=== PATIENT | male | born 1995 | race Caucasian/White ===

== ENCOUNTER 2017-02-02 11:13 | Emergency (ER) | payer SELFPAY ==
--- NOTE | 2017-02-02 11:40 | Emergency Department Record ---
History of Present Illness - General Chief Complaint: Ankle/Foot Injury Stated Complaint: L ANKLE INJURY Time Seen by Provider: 02/02/17 11:37 Source: Patient Mode of Arrival: Wheelchair Limitations: No limitations - History of Present Illness Initial Comments: 21 yo male presents with an injury to the left ankle. He his ankle twisting it. No other injuries. No numbness or tingling MD Complaint: Ankle injury Onset/Timin -: Hour(s) Injury: Ankle: Left Type of Injury: Other Place: Other Severity scale (1-10): 7 Improves With: Immobilization, Rest Worsens With: Movement, Weight bearing Context: Walking Associated Symptoms: Snap/pop sensation, Swelling, Unable to bear weight - Related Data Previous Rx's Medication Instructions Recorded Hydrocodone/Acetaminophen [[place] 1 each PO Q8H #20 tablet 02/02/17 5-325 Tablet] Allergies Allergy/AdvReac Type Severity Reaction Status Date / Time No Known Drug Allergies Allergy Verified 02/02/17 11:17 Travel Screening - Travel/Exposure Within Last 30 Days Have you traveled within the last 30 days?: No - Travel/Exposure Within Last Year Have you traveled outside the [place] in the last year?: No - Additonal Travel Details Have you been exposed to anyone with a communicable illness?: No - Travel Symptoms Symptom Screening: None Review of Systems Constitutional: Denies: Chills, Fever, Weakness Eyes: Denies: Eye discharge ENT: Denies: Congestion, Throat pain Respiratory: Denies: Cough, Dyspnea Cardiovascular: Denies: Chest pain, Syncope Endocrine: Denies: Fatigue Gastrointestinal: Denies: Abdominal pain, Diarrhea, Nausea, Vomiting Genitourinary: Denies: Hematuria Musculoskeletal: Reports: As per HPI, Arthralgia Skin: Reports: Bruising. Denies: Change in color Neurological: Denies: Headache Psychiatric: Denies: Anxiety Hematological/Lymphatic: Denies: Easy bleeding, Easy bruising, Swollen glands Past Medical History - SOCIAL HISTORY Smoking Status: Never smoker Alcohol Use: Occassional Drug Use: None - RESPIRATORY Hx Respiratory Disorders: No - CARDIOVASCULAR Hx Cardio Disorders: No - NEURO Hx Neuro Disorders: No - GI Hx GI Disorders: No - Hx Genitourinary Disorders: No - ENDOCRINE Hx Endocrine Disorders: No - MUSCULOSKELETAL Hx Musculoskeletal Disorders: No - PSYCH Hx Psych Problems: No - HEMATOLOGY/ONCOLOGY Hx Hematology/Oncology Disorders: No Family Medical History Any Significant Family History?: No Physical Exam - General General Appearance: Alert, Oriented x3, Cooperative, No acute distress Limitations: No limitations - Head Head exam: Normal inspection - Eye Eye exam: Normal appearance, PERRL - ENT ENT exam: Normal exam Ear exam: Normal external inspection Nasal Exam: Normal inspection Mouth exam: Normal external inspection - Neck Neck exam: Normal inspection, Full ROM. negative: Tenderness - Cardiovascular Peripheral Pulses: 2+: Dorsalis Pedis (L) - Rectal Rectal exam: Deferred - exam: Deferred - Extremities Extremities exam: Joint swelling, Normal capillary refill, Pedal edema, Tenderness. negative: Normal inspection, Full ROM Image of Full Body: 1 - swelling, and bruising the ankle, intact senstaion and pulses - Neurological Neurological exam: Alert, Oriented X3 - Psychiatric Psychiatric exam: Normal affect, Normal mood - Skin Skin exam: Other (bruisiing) Course Vital Signs 02/02/17 11:17 Temperature 98.5 F Pulse Rate 80 Respiratory 18 Rate Blood Pressure 136/91 Pulse Ox 98 - Reevaluation(s) Reevaluation #1: 02/02/17 12:15 XR demonstrates a comminuted mildly displace distal fibula fracture, medial malleolus fracture Reevaluation #2: I 02/02/17 12:31 02/02/17 12:33 02/02/17 12:[address] Biswas He will see the patient in the office tomorrow for follow up Disposition Disposition: Discharge Clinical Impression: Ankle fracture, left Qualifiers: Encounter type: initial encounter Fracture type: closed Qualified Code(s): S82.892A - Other fracture of left lower leg, initial encounter for closed fracture Disposition: Home, Self-Care Condition: (1) Good Instructions: Ankle Fracture (ED) Additional Instructions: Ice and elevate the ankle Use the splint and crutches for support and comfort Return if uncontrolled pain or any concerns Call Dr Grijalva tomorrow for follow up tomorrow Prescriptions: Hydrocodone/Acetaminophen [[place] 5-325 Tablet] 1 each PO Q8H #20 tablet Referrals: LUIS ALBERTO GRIJALVA [DOCTOR OF OSTEOPATH] - Forms: Patient Portal Access Time of Disposition: 12:18 Quality - Quality Measures Quality Measures: N/A - Blood Pressure Screening View Details: Yes Blood Pressure Classification: Pre-Hypertensive BP Reading Systolic Measurement: 128 Diastolic Measurement: 88 Screening for High Blood Pressure: < Pre-Hypertensive BP, F/U Documented > [ G8950] Pre-Hypertensive Follow-up Interventions: Follow-up with rescreen every year., Referral to alternative/primary care provider.
--- NOTE | 2017-02-04 07:21 | RADIOLOGY REPORT ---
DATE: 02/02/2017. EXAM: LEFT ANKLE. HISTORY: Injury. TECHNIQUE: Two views of the left ankle. COMPARISON: None. ENCOUNTER: Initial. FINDINGS: There is a comminuted, mildly displaced, and angulated distal fibular diaphyseal fracture. In addition, there is a displaced medial malleolar fracture with approximately 6.3 mm of inferior displacement of the distal fracture fragment. Associated extensive soft tissue swelling. No significant widening of the ankle mortis. IMPRESSION: DISTAL FIBULAR AND MEDIAL MALLEOLAR FRACTURE DEFORMITIES ABOVE WITH ASSOCIATED SOFT TISSUE SWELLING. JOB NUMBER: [id number] MTDD
--- NOTE | 2017-02-04 07:27 | RADIOLOGY REPORT ---
DATE: 02/02/2017. EXAM: LEFT FOOT. HISTORY: Injury. TECHNIQUE: Three views of the left foot. COMPARISON: None. ENCOUNTER: Initial. FINDINGS: Partial visualization of the displaced medial malleolar fracture deformity. Distal fibula fracture is not included on this examination and is better seen on the ankle series. No other evidence for an acute fracture or dislocation in the foot. Soft tissue swelling of the ankle. IMPRESSION: NEGATIVE FOR ACUTE FOOT FRACTURE. PARTIAL VISUALIZATION OF THE MEDIAL MALLEOLAR AND DISTAL FIBULA FRACTURES, BETTER SEEN ON PRIOR DEDICATED ANKLE SERIES. JOB NUMBER: [id number] MTDD
== END 2017-02-02 13:34 | disposition home or self-care (01) ==
LOC: ER 11:13
DX: S82.832A Other fracture of upper and lower end of left fibula, initial encounter for closed fracture (principal); S82.52XA Displaced fracture of medial malleolus of left tibia, initial encounter for closed fracture; X50.1XXA Overexertion from prolonged static or awkward postures, initial encounter
CPT/HCPCS: 99283

== ENCOUNTER 2019-01-17 00:51 | Emergency (ER) | payer BC ==
--- NOTE | 2019-01-17 01:07 | Emergency Department Record ---
History of Present Illness - General Chief Complaint: Laceration(s) Stated Complaint: HEAD LAC Time Seen by Provider: 01/17/19 00:58 Source: Patient Mode of Arrival: Ambulatory Limitations: No limitations - History of Present Illness Initial Commments: The patient is here due to tripping and falling an hour ago and injuring his head. The patient was out drinking and fell and hit his forehead on concrete. He had no LOC and has had no nausea, vomiting, or neck pain since. The patient has been walking normally since with no confusion. The patient states his Td is UTD. Onset/Timin -: Minutes(s) Location: Face Place: Work Context: Accidental, Fall Associated Symptoms: None Treatments Prior to Arrival: Bandage - [place] Coma Scale Eye Response: (4) Open spontaneously Motor Response: (6) Obeys commands Verbal Response: (5) Oriented [place] Total: 15 - Related Data Hx Tetanus Toxoid Vaccination: Yes Year of Tetanus Vaccination: patient refuses Patient Tetanus UTD (within 5 yrs): No Previous Rx's Medication Instructions Recorded Cephalexin [Keflex] 500 mg PO QID #28 cap 01/17/19 Allergies Allergy/AdvReac Type Severity Reaction Status Date / Time No Known Drug Allergies Allergy Unverified 08/11/17 14:39 Travel Screening - Travel/Exposure Within Last 30 Days Have you traveled within the last 30 days?: No - Travel/Exposure Within Last Year Have you traveled outside the [place] in the last year?: No - Additonal Travel Details Have you been exposed to anyone with a communicable illness?: No - Travel Symptoms Symptom Screening: None Review of Systems Constitutional: Denies: Chills, Fever Eyes: Denies: Eye discharge ENT: Denies: Congestion Respiratory: Denies: Cough, Dyspnea Past Medical History - SOCIAL HISTORY Smoking Status: Current every day smoker Alcohol Use: Occasional Drug Use: None - RESPIRATORY Hx Respiratory Disorders: No - CARDIOVASCULAR Hx Cardio Disorders: No - NEURO Hx Neuro Disorders: No - GI Hx GI Disorders: No - Hx Genitourinary Disorders: No - ENDOCRINE Hx Endocrine Disorders: No - MUSCULOSKELETAL Hx Musculoskeletal Disorders: No - PSYCH Hx Psych Problems: No - HEMATOLOGY/ONCOLOGY Hx Hematology/Oncology Disorders: No Family Medical History Any Significant Family History?: No Physical Exam - General General Appearance: Alert, Oriented x3, Cooperative, No acute distress - Head Head exam: negative: Atraumatic (There is an 8 cm laceration to the R superior frontal bone area. There is significant bleeding presently.), Normocephalic, Normal inspection Image of Face/Head: 1 - Area of 8 cm laceration. - Eye Eye exam: Normal appearance, PERRL, EOMI. negative: Conjunctival injection - ENT Throat exam: Normal inspection. negative: Tonsillar erythema, Tonsillar exudate - Neck Neck exam: Normal inspection, Full ROM. negative: Tenderness - Respiratory Respiratory exam: Normal lung sounds bilaterally. negative: Respiratory distress - Cardiovascular Cardiovascular Exam: Regular rate, Normal rhythm, Normal heart sounds - GI/Abdominal GI/Abdominal exam: Soft, Normal bowel sounds. negative: Tenderness - Extremities Extremities exam: Normal inspection, Full ROM, Normal capillary refill. negative: Tenderness - Neurological Neurological exam: Alert, Normal gait, Oriented X3. negative: Abnormal gait, Altered, Motor sensory deficit - Psychiatric Psychiatric exam: negative: Anxious Course Vital Signs 01/17/19 00:57 Temperature 98.7 F Pulse Rate [ 112 H Left] Respiratory 16 Rate Blood Pressure 105/58 [Left Arm] Pulse Ox 98 - Reevaluation(s) Reevaluation #1: Procedure note: The R frontal laceration was cleansed with betadine after anesth. the area with 5 cc's Lido with Epi. The wound was extensively lavaged with sterile saline. The wound was explored and extensively debrided of hair and dirt deep into the wound. The wound in a 1 cm area was down to bone and there was dirt tattooed onto the skull. The dirt and hair in the wound were cleaned out as well as it possibly could have been. Two deep 4.0 vicryl sutures were placed but there was extensive bleeding present which precluded placing any more deep sutures. The skin was then closed with inferiorly 8 4.0 nylon sutures then 6 4.o Prolene sutures in the superior area of the wound in the hairline. The wound did close well with no complications. 01/17/19 02:31 Medical Decision Making - Data Complexity MDM Data: X-Ray Ordered and/or Reviewed - Radiology Data Radiology results: Report reviewed (Head and Cervical CT's: neg for any acute changes.) Disposition Clinical Impression: Laceration of scalp Qualifiers: Encounter type: initial encounter Qualified Code(s): S01.01XA - Laceration without foreign body of scalp, initial encounter Disposition: Home, Self-Care Condition: (2) Stable Instructions: Laceration (ED) Additional Instructions: Keep dry for 2 days then wash daily and use antibiotic ointment during the day. Take Tylenol or Motrin for pain and take the Keflex as directed. Please have the sutures removed in 7 days. Return to the ER for any signs of infection. Prescriptions: Cephalexin [Keflex] 500 mg PO QID #28 cap Forms: Patient Portal Access Time of Disposition: 02:37 Quality - Quality Measures Quality Measures: N/A - Blood Pressure Screening View Details: Yes Does Patient Have Any of the Following: No Blood Pressure Classification: Normal BP Reading Systolic Measurement: 106 Diastolic Measurement: 58 Screening for High Blood Pressure: < Normal BP, F/U Not Required > [G8783]
[2019-01-17] MEDS ORDERED: LIDOCAINE 1% W/EPI 1:200,000 MPF 30ML SQ ONE (01:37)
--- NOTE | 2019-01-18 21:38 | CT SCAN REPORT ---
EXAM: CT SCAN HEAD WO CONTRAST HISTORY: FALL HITTING HEAD ON CURB. LACERATION TO RIGHT FOREHEAD. TECHNIQUE: Routine noncontrast CT of the brain. COMPARISON: CT of the facial bone dated 01/03/2010. FINDINGS: The ventricles and subarachnoid spaces are normal in size. No area of abnormally increased or decreased or attenuation is noted throughout the brain substance. The sandoval-white interfaces are distinct. No abnormal extraaxial fluid collection. No skull fracture is identified. There is a linear lucent defect within the right frontal scalp with mild adjacent soft tissue swelling. This lucency is consistent with laceration. No associated foreign body. There is a large retention cyst, incompletely imaged, suggested within the inferior left maxillary sinus. The paranasal sinuses are otherwise clear with the exception of a tiny retention cyst in the anterior left sphenoid sinus. There is a slight divergent gaze of the ocular globes. Correlation with physical examination is recommended. The orbits as visualized are otherwise unremarkable. IMPRESSION: 1. NO ACUTE INTRACRANIAL ABNORMALITY NOR SKULL FRACTURE. 2. RIGHT FRONTAL SCALP LACERATION. 3. RETENTION CYST, INCOMPLETELY IMAGED, WITHIN THE LEFT MAXILLARY SINUS. POSSIBLE TINY RETENTION CYST IN THE LEFT SPHENOID SINUS. JOB NUMBER: [id number] [facility]
--- NOTE | 2019-01-18 21:47 | CT SCAN REPORT ---
EXAM: CT SCAN CERVICAL SPINE WO CONTRAST HISTORY: FALL WITH TRAUMA TO RIGHT SIDE OF HEAD. RIGHT FRONTAL LACERATION. TECHNIQUE: Thin-collimation helical CT examination of the cervical spine is performed in the axial plane without intravenous contrast. Coronal and sagittal reformatted images are generated and reviewed. COMPARISON: No prior imaging of the cervical spine available for comparison. Same-day noncontrast CT of the brain. FINDINGS: There is normal bone mineralization. There is straightening of the normal cervical lordosis. The vertebral bodies are otherwise normal in alignment and height. No acute fracture, destructive bone lesion, nor prevertebral soft tissue swelling. Minor disc space narrowing is questioned at the C3-C4 and C4-C5 levels associated with minor marginal endplate spurring. The intervertebral disc heights are otherwise maintained. No gross osseous cervical spinal stenosis. The uncovertebral joints and facet joints are maintained. The neural foramina are patent. There is likely mild hyperplasia of the palatine tonsils. No cervical mass nor adenopathy. A 2 cm retention cyst arises from the floor of the left maxillary sinus. The visualized lung apices are clear. IMPRESSION: 1. NO ACUTE FRACTURE, SUBLUXATION, NOR PREVERTEBRAL SOFT TISSUE SWELLING. 2. EARLY DEGENERATIVE DISC CHANGES QUESTIONED AT THE C3-C4 AND C4-C5 LEVELS. 3. RETENTION CYST WITHIN THE LEFT MAXILLARY SINUS. JOB NUMBER: [id number] MTDD
== END 2019-01-17 02:41 | disposition home or self-care (01) ==
LOC: ER 00:51
DX: S01.01XA Laceration without foreign body of scalp, initial encounter (principal); W01.198A Fall on same level from slipping, tripping and stumbling with subsequent striking against other object, initial encounter; F10.929 Alcohol use, unspecified with intoxication, unspecified; F17.220 Nicotine dependence, chewing tobacco, uncomplicated
CPT/HCPCS: 13121; 13122; 70450; 72125; 99284

== ENCOUNTER 2019-04-29 19:03 | Emergency (ER) | payer BC ==
[2019-04-29] MEDS ORDERED: HYOSCYAMINE SULFATE ODT 0.125 MG TAB.SUBL SL ONE (19:10)
[2019-04-29] MEDS ORDERED: ONDANSETRON HCL IV 4 MG/2 ML VIAL IVP ONE (19:10)
[2019-04-29] MEDS ORDERED: 0.9 % SODIUM CHLORIDE 1000ML 1,000 ML IV SCH (19:15)
--- NOTE | 2019-04-29 19:15 | Emergency Department Record ---
History of Present Illness - General Chief Complaint: Abdominal Pain Stated Complaint: ABD PAIN AND NAUSEA Time Seen by Provider: 04/29/19 19:09 Source: Patient Mode of Arrival: Ambulatory Limitations: No limitations - History of Present Illness Initial Comments: 23 yo male presents to ED for evaluation of loose stools and nausea symptoms which began last night. Patient reports that he has not been able to tolerate eating/drinking due to his nausea symptoms. Patient reports subjective fever and abdominal "cramping" symptoms. Patient denies previous abdominal surgery or health problems at his baseline. MD Complaint: Abdominal pain Onset/Timin -: Hour(s) Location: Diffuse Radiation: None Migration to: No migration Severity: Moderate Quality: Cramping Consistency: Constant Improves With: Nothing Worsens With: Eating Associated Symptoms: Nausea - Related Data Previous Rx's Medication Instructions Recorded Hyoscyamine Sulfate [Levsin Odt] 0.25 mg PO Q8H PRN #15 tab.subl 04/29/19 Ondansetron [Zofran Odt] 4 mg PO Q8H PRN #15 tab.rapdis 04/29/19 Allergies Allergy/AdvReac Type Severity Reaction Status Date / Time No Known Drug Allergies Allergy Unverified 08/11/17 14:39 Review of Systems Constitutional: Reports: Fever. Denies: Chills, Malaise, Night sweats Eyes: Denies: Eye discharge, Eye pain ENT: Denies: Congestion, Ear pain, Epistaxis Respiratory: Denies: Cough, Dyspnea Cardiovascular: Denies: Chest pain, Dyspnea on exertion Endocrine: Reports: Fatigue. Denies: Heat or cold intolerance Gastrointestinal: Reports: Abdominal pain, Diarrhea, Nausea. Denies: Constipation, Vomiting Genitourinary: Denies: Incontinence, Retention Musculoskeletal: Denies: Arthralgia, Back pain Skin: Denies: Bruising, Change in color Neurological: Denies: Abnormal gait, Confusion, Headache, Tingling, Tremors Psychiatric: Denies: Anxiety Hematological/Lymphatic: Denies: Anemia, Blood Clots Past Medical History - SOCIAL HISTORY Smoking Status: Current every day smoker Drug Use: None - RESPIRATORY Hx Respiratory Disorders: No - CARDIOVASCULAR Hx Cardio Disorders: No - NEURO Hx Neuro Disorders: No - GI Hx GI Disorders: No - Hx Genitourinary Disorders: No - ENDOCRINE Hx Endocrine Disorders: No - MUSCULOSKELETAL Hx Musculoskeletal Disorders: No - PSYCH Hx Psych Problems: No - HEMATOLOGY/ONCOLOGY Hx Hematology/Oncology Disorders: No Physical Exam - General General Appearance: Alert, Oriented x3, Cooperative, Mild distress Limitations: No limitations - Head Head exam: Atraumatic, Normocephalic, Normal inspection Head exam detail: negative: Abrasion, Contusion, Grant's sign, General tenderness, Hematoma, Laceration - Eye Eye exam: Normal appearance. negative: Conjunctival injection, Periorbital swelling, Periorbital tenderness, Scleral icterus - ENT Ear exam: negative: Auricular hematoma, Auricular trauma Nasal Exam: negative: Active bleeding, Discharge, Dried blood, Foreign body Mouth exam: negative: Drooling, Laceration, Muffled voice, Tongue elevation - Neck Neck exam: Normal inspection. negative: Meningismus, Tenderness - Respiratory Respiratory exam: Normal lung sounds bilaterally. negative: Respiratory distress, Rhonchi, Stridor, Wheezes - Cardiovascular Cardiovascular Exam: Normal rhythm, Normal heart sounds, Tachycardia - GI/Abdominal GI/Abdominal exam: Soft, Tenderness (Mild, diffuse TTP, no rebound or guarding symptoms are present on examination. No clinical evidence for a surgiacl process based on my examination.). negative: Rebound, Rigid - Rectal Rectal exam: Deferred - exam: Deferred - Extremities Extremities exam: Normal inspection. negative: Pedal edema, Tenderness - Back Back exam: Denies: CVA tenderness (R), CVA tenderness (L) - Neurological Neurological exam: Alert, Normal gait, Oriented X3 - Psychiatric Psychiatric exam: Normal affect, Normal mood - Skin Skin exam: Normal color. negative: Abrasion Type of lesion: negative: abrasion Course Vital Signs 04/29/19 19:09 Temperature 98.4 F Pulse Rate [ 116 H Left] Respiratory 16 Rate Blood Pressure 144/84 [Left Arm] Pulse Ox 96 - Reevaluation(s) Reevaluation #1: 04/29/19 19:14 Patient was seen and examined. Abdominal examination does not demonstrate any evidence for an acute surgical process. Will administer antiemetic, anti-spasmotic, IVFs, and reassess following laboratory study results. CT imaging is not felt to be necessary based on patient's examination at this time. Reevaluation #2: 04/29/19 19:50 Laboratory studies were reviewed and appear grossly unremarkable for an acute process. Reevaluation #3: 04/29/19 20:30 Patient was reassessed at this time, reports that he is feeling much imporved. Repeat abdominal examination again fails to demonstrate any evidence for an acute surgical process. Patient was updated on all results thus far, he is in agreement to defer CT imaging at this time following our discussion. UA sent to lab, will update on results. Reevaluation #4: 04/29/19 20:41 UA appears negative for infection Patient appears stable for discharge at this time with Zofran and Levsin as directed. Patient was advised to return to ED for re-evaluation if his pain symptoms worsen or if he develops any concerns as well. Medical Decision Making - Lab Data Result diagrams: 04/29/19 19:15 04/29/19 19:15 Disposition Disposition: Discharge Clinical Impression: Abdominal cramping Diarrhea Qualifiers: Diarrhea type: unspecified type Qualified Code(s): R19.7 - Diarrhea, unspecified Disposition: Home, Self-Care Condition: (2) Stable Instructions: Dehydration (ED) Additional Instructions: Return to ED if your symptoms worsen or if you have any concerns. Zofran and Levsin as directed. Follow-up with your family doctor in 1-3 days as directed. Prescriptions: Hyoscyamine Sulfate [Levsin Odt] 0.25 mg PO Q8H PRN #15 tab.subl PRN Reason: Abdominal Pain Ondansetron [Zofran Odt] 4 mg PO Q8H PRN #15 tab.rapdis PRN Reason: Nausea/Vomiting Forms: Patient Portal Access Time of Disposition: 20:33 Quality - Quality Measures Quality Measures: N/A - Blood Pressure Screening Does Patient Have Any of the Following: No Blood Pressure Classification: Pre-Hypertensive BP Reading Systolic Measurement: 144 Diastolic Measurement: 84 Screening for High Blood Pressure: < Pre-Hypertensive BP, F/U Documented > [G8950] Pre-Hypertensive Follow-up Interventions: Referral to alternative/primary care provider.
[2019-04-29 19:32] LABS: HEMATOCRIT 50.7 % (42.0-52.0); HEMOGLOBIN 17.7 gm/dl (14.0-18.0); MEAN CORPUSCULAR HGB CONC 34.9 g/dl (32-36); MEAN PLATELET VOLUME 9.7 fl (7.4-10.4); PLATELET COUNT 218 K/uL (130-400); RED BLOOD COUNT 6.11 M/uL (4.40-5.70); RED CELL DISTRIBUTION WIDTH 12.7 % (11.5-14.5); WHITE BLOOD COUNT W/O DIFF 7.1 K/uL (4.2-12.2)
[2019-04-29 19:33] LABS: MEAN CORPUSCULAR HEMOGLOBIN 28.9 pg (27-33)
[2019-04-29 19:44] LABS: BLOOD UREA NITROGEN 23 mg/dL (6-20); CREATININE 1.1 mg/dL (0.7-1.2); EST GLOMERULAR FILTRATION RATE > 60 mL/min
[2019-04-29 19:45] LABS: LIPASE 20 U/L (13-60)
[2019-04-29 19:47] LABS: GLUCOSE,RANDOM 130 mg/dL (74-109)
[2019-04-29 19:49] LABS: ALT/SGPT 32 U/L (<41); AST/SGOT 26 U/L (10.0-50.0)
[2019-04-29 19:50] LABS: ALB/GLOB RATIO 1.5 (1.1-1.8); ALBUMIN 4.8 g/dL (4.0-5.0); ALKALINE PHOSPHATASE 97 U/L (40-129)
[2019-04-29 20:37] LABS: URINE APPEARANCE CLEAR; URINE BILIRUBIN SMALL (NEGATIVE); URINE BLOOD NEGATIVE (NEGATIVE); URINE COLOR YELLOW; URINE GLUCOSE (UA) NEGATIVE (NEGATIVE); URINE KETONE NEGATIVE (NEGATIVE); URINE LEUKOCYTE ESTERASE NEGATIVE (NEGATIVE); URINE NITRITE NEGATIVE (NEGATIVE); URINE PROTEIN TRACE (NEGATIVE); URINE UROBILINOGEN 0.2 E.U./dL (0.20 - 1.00)
[2019-04-29 20:44] LABS: URINE EPITHELIAL CELLS 0 - 2 (FEW); URINE RBC 0 - 2 (NONE SEEN); URINE WBC 0 - 2 (0-2/hpf)
[2019-04-29 20:45] LABS: URINE MUCUS LIGHT
== END 2019-04-29 20:49 | disposition home or self-care (01) ==
LOC: ER 19:03
DX: R19.7 Diarrhea, unspecified (principal); E86.0 Dehydration; R11.2 Nausea with vomiting, unspecified; R10.9 Unspecified abdominal pain
CPT/HCPCS: 99284 ×2; 96374; 96361; 83690; 80053; 81001; 85027; J1980; J2405; J7030